=== PATIENT | male | born 1975 | race Two or more races ===

== ENCOUNTER 2018-12-07 09:23 | Outpatient (CLI) | payer BC ==
[2018-12-07] MEDS ORDERED: No meds per pt. (09:59)
== END 2018-12-07 23:59 | disposition home or self-care (01) ==
LOC: STAR 09:23
PROVIDERS: ATTEND Orthopaedic Surgery
DX: Z02.9 Encounter for administrative examinations, unspecified (principal)

== ENCOUNTER 2018-12-12 07:58 | Day surgery (SDC) | payer BC, OTHER ==
[~2018-12-12] VITALS: Ht 162.6 cm; Wt 60.2 kg
[2018-12-12 08:47] VITALS: BP 112/73
== END 2018-12-12 16:10 | disposition home or self-care (01) ==
LOC: OUT 07:58
PROVIDERS: ATTEND Orthopaedic Surgery
DX: S83.512A Sprain of anterior cruciate ligament of left knee, initial encounter (principal); S83.242A Other tear of medial meniscus, current injury, left knee, initial encounter; Z79.899 Other long term (current) drug therapy; Z87.891 Personal history of nicotine dependence; X50.1XXA Overexertion from prolonged static or awkward postures, initial encounter; Y93.39 Activity, other involving climbing, rappelling and jumping off; Y92.812 Truck as the place of occurrence of the external cause; Y99.8 Other external cause status
CPT/HCPCS: 29881; 29888; 64447; 73560; C1713; C1762; J0171; J0690; J1100; J1170; J2250; J2405; J2704; J3010; J3490; J7120; 76000; J2274